=== PATIENT | female | born 1990 | race Hispanic/Latino ===

== ENCOUNTER 2019-11-16 11:45 | Emergency (ER) | payer OTHER ==
[2019-11-16] MEDS ORDERED: NA CHLORIDE 0.9% 1,000 ML ONE (13:37)
[2019-11-16 13:52] LABS: Basophils % 0.5 % (0-1.3); Hematocrit 37.4 % (36.0-45.0); Lymphocytes % 21.2 % (15.3-44.8); MPV 8.8 fL (7.6-11.3); RBC Red Blood Cell Count 4.57 M/uL (3.86-4.86)
[2019-11-16 14:11] LABS: ALT/SGPT 22 U/L (12-78); AST/SGOT 17 U/L (15-37); Albumin 3.3 g/dL (3.4-5.0); Alkaline Phosphatase 47 U/L (45-117); BUN Blood Urea Nitrogen 6 mg/dL (7-18); Bicarbonate 27 mmol/L (21-32); Bilirubin Direct < 0.1 mg/dL (0-0.2); Bilirubin Total 0.3 mg/dL (0.2-1.0); Glucose Level 98 mg/dL (74-106); Lipase 143 U/L (73-393); Potassium 3.3 mmol/L (3.5-5.1); Sodium Level 138 mmol/L (136-145)
[2019-11-16 14:23] LABS: Blood Morphology Comment NOT SEEN (NOT SEEN); Platelet Estimate ADEQ
--- NOTE | 2019-11-16 14:31 | EDPHYS ---
Physician Documentation [facility] Name: Radha Rodriguez Age: 29 yrs Sex: Female : 1990 Arrival Date: 11/16/2019 Time: 11:47 Bed 28 Private MD: ED Physician Inder Min HPI: 11/16 13:55 This 29 yrs old Female presents to ER via Ambulatory with complaints of jr8 Abdominal Pain, Vomiting/Diarrhea, Bloody Stools. 13:55 The patient presents with abdominal pain that is diffuse. Onset: The symptoms/episode jr8 began/occurred gradually, 2 week(s) ago. The symptoms do not radiate. Associated signs and symptoms: Pertinent positives: diarrhea, nausea. The symptoms are described as crampy. Modifying factors: The symptoms are alleviated by nothing, the symptoms are aggravated by food. Severity of pain: At its worst the pain was in the emergency department the pain is unchanged. The patient has not experienced similar symptoms in the past. The patient has not recently seen a physician. Patient stated that she had body aches, chills, nausea, diarrhea about 2 weeks ago. Had cleared up. Was but now the diarrhea had started back but seems to be bloody. 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 - Social history:: Smoking status: Patient/guardian denies using tobacco. - Ebola Screening: : Patient negative for fever greater than or equal to 101.5 degrees Fahrenheit, and additional compatible Ebola Virus Disease symptoms Patient denies exposure to infectious person Patient denies travel to an Ebola-affected area in the 21 days before illness onset No symptoms or risks identified at this time. ROS: 13:55 Eyes: Negative for injury, pain, redness, and discharge, ENT: Negative for injury, jr8 pain, and discharge, Neck: Negative for injury, pain, and swelling, Cardiovascular: Negative for chest pain, palpitations, and edema, Respiratory: Negative for shortness of breath, cough, wheezing, and pleuritic chest pain, Back: Negative for injury and pain, MS/Extremity: Negative for injury and deformity, Skin: Negative for injury, rash, and discoloration, Neuro: Negative for headache, weakness, numbness, tingling, and seizure. 13:55 Abdomen/GI: Positive for nausea, diarrhea, abdominal cramps, rectal bleeding. Exam: 13:55 Eyes: Pupils equal round and reactive to light, extra-ocular motions intact. Lids and jr8 lashes normal. Conjunctiva and sclera are non-icteric and not injected. Cornea within normal limits. Periorbital areas with no swelling, redness, or edema. ENT: Nares patent. No nasal discharge, no septal abnormalities noted. Tympanic membranes are normal and external auditory canals are clear. Oropharynx with no redness, swelling, or masses, exudates, or evidence of obstruction, uvula midline. Mucous membranes moist. Neck: Trachea midline, no thyromegaly or masses palpated, and no cervical lymphadenopathy. Supple, full range of motion without nuchal rigidity, or vertebral point tenderness. No Meningismus. Cardiovascular: Regular rate and rhythm with a normal S1 and S2. No gallops, murmurs, or rubs. Normal PMI, no JVD. No pulse deficits. Respiratory: Lungs have equal breath sounds bilaterally, clear to auscultation and percussion. No rales, rhonchi or wheezes noted. No increased work of breathing, no retractions or nasal flaring. Abdomen/GI: Soft, non-tender, with normal bowel sounds. No distension or tympany. No guarding or rebound. No evidence of tenderness throughout. Back: No spinal tenderness. No costovertebral tenderness. Full range of motion. Skin: Warm, dry with normal turgor. Normal color with no rashes, no lesions, and no evidence of cellulitis. MS/ Extremity: Pulses equal, no cyanosis. Neurovascular intact. Full, normal range of motion. Neuro: Awake and alert, GCS 15, oriented to person, place, time, and situation. Cranial nerves II-XII grossly intact. Motor strength 5/5 in all extremities. Sensory grossly intact. Cerebellar exam normal. Normal gait. 14:27 Abdomen/GI: Rectal exam: rectal tone normal, Stool: brown, guaiac negative, jr8 hemorrhoid(s), are not appreciated, mass, is not appreciated, swelling, is not appreciated, tenderness, is not appreciated, the exam is chaperoned by the nurse. Vital Signs: 12:22 BP 128 / 83; Pulse 98; Resp 18; Temp 97.7; Pulse Ox 100% on R/A; Weight 52.16 kg; sg Height 5 ft. 0 in. (152.40 cm); Pain 4/10; 12:22 Body Mass Index 22.46 (52.16 kg, 152.40 cm) sg MDM: 13:17 Patient medically screened. [facility] 14:27 Data reviewed: vital signs, nurses notes, lab test result(s). Data interpreted: Pulse jr8 oximetry: on room air is 100 %. Interpretation: normal. Counseling: I had a detailed discussion with the patient and/or guardian regarding: the historical points, exam findings, and any diagnostic results supporting the discharge/admit diagnosis, lab results, the need for outpatient follow up, a family practitioner, to return to the emergency department if symptoms worsen or persist or if there are any questions or concerns that arise at home. 14:28 ED course: Patient local to this area. Explained to her that we have had a recent [facility] shigella outbreak. Will send stool sample out for culture amongst other studies. For the meantime since this is persistent and will possible blood in it. Will treat as infectious diarrhea, specifically shigella since patient has not been on abx recently and has had no recent travel . 11/16 13:30 Order name: Basic Metabolic Panel; Complete Time: 14:18 11/16 13:30 Order name: CBC with Diff; Complete Time: 14:27 11/16 13:30 Order name: Creatinine for Radiology; Complete Time: 14:10 11/16 13:30 Order name: Hepatic Function; Complete Time: 14:18 11/16 13:30 Order name: Lipase; Complete Time: 14:18 11/16 13:31 Order name: Stool Culture 11/16 13:31 Order name: Ova And Parasites 11/16 13:31 Order name: Occult Blood; Complete Time: 14:58 11/16 13:31 Order name: Fecal Leukocyte Stain 11/16 14:23 Order name: Manual Differential; Complete Time: 14:27 EDMS 11/16 14:27 Order name: Occult Blood--Ancillary iw 11/16 14:40 Order name: Urine Dipstick--Ancillary (enter results) eb 11/16 14:40 Order name: Urine --Ancillary (enter results) eb 11/16 13:30 Order name: IV Saline Lock; Complete Time: 13:41 8 11/16 13:30 Order name: Labs collected and sent; Complete Time: 13:41 8 11/16 13:30 Order name: Urine Test (obtain specimen); Complete Time: 14:39 8 11/16 13:30 Order name: Urine Dipstick-Ancillary (obtain specimen); Complete Time: 14:39 Administered Medications: 13:41 Drug: NS 0.9% 1000 ml Route: IV; Rate: 1000 ml; Site: right antecubital; aa5 15:05 Follow up: IV Status: Completed infusion; IV Intake: 1000ml aa5 14:30 Drug: Potassium Chloride 20 mEq Route: PO; aa5 15:05 Follow up: Response: No adverse reaction aa5 Disposition: 16:42 Co-signature as Attending Physician, Inder Min MD I agree with the assessment and michael plan of care. Disposition: 11/16/19 14:30 Discharged to Home. Impression: Diarrhea, unspecified. - Condition is Stable. - Discharge Instructions: Diarrhea, Adult. - Prescriptions for Bentyl 20 mg Oral Tablet - take 1 tablet by ORAL route every 6 hours As needed; 20 tablet. Zofran 4 mg Oral Tablet - take 1 tablet by ORAL route every 12 hours As needed; 20 tablet. Bactrim DS 800- 160 mg Oral Tablet - take 1 tablet by ORAL route every 12 hours for 10 days; 20 tablet. - Medication Reconciliation Form, Thank You Letter, Antibiotic Education, Prescription Opioid Use, Work release form form. - Follow up: Private Physician; When: 5 - 6 days; Reason: Recheck today's complaints, Continuance of care, Re-evaluation by your physician. Follow up: Agusto Santoyo MD; When: 1 week; Reason: Recheck today's complaints, Continuance of care, Re-evaluation by your physician. - Problem is new. - Symptoms have improved. Signatures: Dispatcher [employer] EDMS Jono Beach RN RN sg Anderson, Corey, MD MD cha Calderon, Audri, RN RN aa5 Carlyle Wood PA PA jr8 [place] 1 Corrections: (The following items were deleted from the chart) 15:08 14:30 11/16/2019 14:30 Discharged to Home. Impression: Diarrhea, unspecified. Condition lt1 is Stable. Forms are Medication Reconciliation Form, Thank You Letter, Antibiotic Education, Prescription Opioid Use. Follow up: Private Physician; When: 5 - 6 days; Reason: Recheck today's complaints, Continuance of care, Re-evaluation by your physician. Follow up: Agusto Santoyo; When: 1 week; Reason: Recheck today's complaints, Continuance of care, Re-evaluation by your physician. Problem is new. Symptoms have improved. jr8
--- NOTE | 2019-11-16 14:31 | ER ---
Nurse's Notes [facility] Name: Radha Rodriguez Age: 29 yrs Sex: Female : 1990 Arrival Date: 11/16/2019 Time: 11:47 Bed 28 Private MD: Diagnosis: Diarrhea, unspecified Presentation: 11/16 12:23 Presenting complaint: Patient states: Lower abd pain and cramping with diarrhea that sg started last Wednesday, reports having blood in the stool that is bright red starting today. Transition of care: patient was not received from another setting of care. Onset of symptoms was November 16, 2019. Risk Assessment: Do you want to hurt yourself or someone else? Patient reports no desire to harm self or others. Initial Sepsis Screen: Does the patient meet any 2 criteria? No. Patient's initial sepsis screen is negative. Does the patient have a suspected source of infection? Yes: Acute abdominal pain. Care prior to arrival: None. 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 - Social history:: Smoking status: Patient/guardian denies using tobacco. - Ebola Screening: : Patient negative for fever greater than or equal to 101.5 degrees Fahrenheit, and additional compatible Ebola Virus Disease symptoms Patient denies exposure to infectious person Patient denies travel to an Ebola-affected area in the 21 days before illness onset No symptoms or risks identified at this time. Screenin:15 Abuse screen: Denies threats or abuse. Nutritional screening: No deficits noted. aa5 Tuberculosis screening: No symptoms or risk factors identified. Fall Risk None identified. Assessment: 13:15 General: Appears comfortable, Behavior is calm, cooperative. Pain: Complains of pain in aa5 right lower quadrant and left lower quadrant Pain does not radiate. Pain currently is 0 out of 10 on a pain scale. Quality of pain is described as crampy, Pain began 6 days ago Is intermittent. Neuro: Level of Consciousness is awake, alert, obeys commands, Oriented to person, place, time, situation. Cardiovascular: Heart tones S1 S2 present Rhythm is regular. Respiratory: Airway is patent Respiratory effort is even, unlabored, Respiratory pattern is regular, symmetrical. GI: Abdomen is flat, non-distended, Bowel sounds present X 4 quads. Abd is soft and non tender X 4 quads. Reports diarrhea, bloody stool, Patient currently denies nausea, vomiting. : No signs and/or symptoms were reported regarding the genitourinary system. EENT: No signs and/or symptoms were reported regarding the EENT system. Derm: Skin is pink, warm \T\ dry. Musculoskeletal: Range of motion: intact in all extremities. 14:19 Reassessment: Stool sample sent to lab. Stool is light brown in color and loose, no aa5 blood noted. . 14:19 Reassessment: Patient is alert, oriented x 3, equal unlabored respirations, skin aa5 warm/dry/pink. 14:30 Reassessment: Patient is alert, oriented x 3, equal unlabored respirations, skin aa5 warm/dry/pink. Patient denies pain at this time. Awaiting NS bolus to complete before d/c home, pt notified of wait time. . 15:05 Reassessment: Patient is alert, oriented x 3, equal unlabored respirations, skin aa5 warm/dry/pink. Patient denies pain at this time. Vital Signs: 12:22 BP 128 / 83; Pulse 98; Resp 18; Temp 97.7; Pulse Ox 100% on R/A; Weight 52.16 kg; sg Height 5 ft. 0 in. (152.40 cm); Pain 4/10; 12:22 Body Mass Index 22.46 (52.16 kg, 152.40 cm) ED Course: 11:47 Patient arrived in ED. am2 12:20 Arm band placed on. sg 12:24 Triage completed. sg 13:10 Carllye Wood PA is PHCP. jr8 13:10 Inder Min MD is Attending Physician. jr8 13:10 Alyx Rushing, USHA is Primary Nurse. aa5 13:40 Initial lab(s) drawn, by me, sent to lab. Inserted saline lock: 22 gauge in right lt1 antecubital area, using aseptic technique. 14:10 Patient has correct armband on for positive identification. Placed in gown. Bed in low aa5 position. Call light in reach. Side rails up X2. 14:30 Agusto Santoyo MD is Referral Physician. jr8 15:05 No provider procedures requiring assistance completed. IV discontinued, intact, aa5 bleeding controlled, No redness/swelling at site. Pressure dressing applied. Administered Medications: 13:41 Drug: NS 0.9% 1000 ml Route: IV; Rate: 1000 ml; Site: right antecubital; aa5 15:05 Follow up: IV Status: Completed infusion; IV Intake: 1000ml aa5 14:30 Drug: Potassium Chloride 20 mEq Route: PO; aa5 15:05 Follow up: Response: No adverse reaction aa5 Intake: 15:05 IV: 1000ml; Total: 1000ml. aa5 Outcome: 14:30 Discharge ordered by . jr8 15:05 Discharged to home ambulatory, with family. aa5 15:05 Condition: stable 15:05 Discharge instructions given to patient, Instructed on discharge instructions, follow up and referral plans. medication usage, Demonstrated understanding of instructions, follow-up care, medications, Prescriptions given X 3. 15:08 Patient left the ED. lt1 Signatures: Jono Beach RN RN Alyx Rushing RN RN aa5 Carlyle Wood PA PA jr8 Moreno, Amanda am2 Tran, Leah lt1
[2019-11-16] MEDS ORDERED: POTASSIUM CL SA 10 MEQ TAB PO ONE (14:36)
[2019-11-16 15:14] VITALS: BP 128/83; TEMP 97.7; O2SAT 100
[2019-11-16 15:52] LABS: Urine Blood 1+ (NEG); Urine Glucose NEGATIVE (NEG); Urine Protein 1+ (NEG); Urine Specific Gravity 1.015 (1.005-1.030)
== END 2019-11-16 15:08 | disposition home or self-care (01) ==
LOC: ER 11:45
DX: R19.7 Diarrhea, unspecified (principal)
CPT/HCPCS: 87045; 85025; 80048; 36415; 89055; 87177; 82274; 81025; 80076; 87046; 82272; 87209; 81003; 83690; 96360; 99284; J7030